=== PATIENT | female | born 1935 | race Caucasian/White ===

== ENCOUNTER 2020-02-29 10:07 | Inpatient (IN) ==
[2020-02-29] MEDS ORDERED: ASPIRIN CHEW 324 MG PO STA (10:28)
[2020-02-29] MEDS ORDERED: NITROGLYCERIN 2% OINTMENT 30GM TUBE EXT STA (10:28)
--- NOTE | 2020-02-29 10:44 | Emergency Department Note ---
History of Present Illness General Chief complaint: Respiratory Problems Stated complaint: BREATHING PROBLEMS Time Seen by Provider: 02/29/20 10:19 Source: patient History of Present Illness Provider complaint: Chest pain Onset (ago): day(s) Location: chest Radiation: non-radiation Pain Consistency: + intermittent and + now resolved Maximum Pain Intensity: 0 Quality: + other (Heaviness) Relieved By: + rest Exacerbated By: + other (Exertion) Associated symptoms: + shortness of breath; no cough, no diaphoresis, no fever/chills and no nausea/vomiting This is an 84-year-old female with a history of hypertension and aortic stenosis presenting with chest pain since yesterday. The patient stated that it started yesterday while she was doing nothing in particular. She describes it as a heaviness across her entire chest. No radiation to her her arms or neck. It is associated with shortness of breath. She does states she has had dyspnea on exertion for about 2 months. Her chest discomfort is worse when she exerts herself and better when she rests. No associated diaphoresis. She denies any fever, cough, abdominal pain, vomiting or diarrhea or black or bloody stools. She called her supervisor prepress office today who instructed her to go to the emergency department. She does have a history of hypertension which she states gets worse when she is around doctors or the hospital. He did take her high blood pressure medicine today. Home Medications Home Medications Medication Instructions Recorded Confirmed Type amlodipine 10 mg tablet 10 mg PO HS tab 02/10/20 02/29/20 History terazosin 2 mg capsule 4 mg PO HS cap 02/10/20 02/29/20 History ascorbic acid (vitamin C) [Vitamin 0 mg PO QAM 02/29/20 02/29/20 History C] bisoprolol-hydrochlorothiazide 1 tab PO QAM 02/29/20 02/29/20 History cholecalciferol (vitamin D3) 0 mcg PO QAM 02/29/20 02/29/20 History [Vitamin D3] ibuprofen [Advil] 200 mg PO Q6H PRN 02/29/20 02/29/20 History levothyroxine [Levo-T] 112 mcg PO DAILY@1700 02/29/20 02/29/20 History lorazepam 0.5 mg PO TID PRN 02/29/20 02/29/20 History losartan 100 mg PO HS 02/29/20 02/29/20 History skqpxdcjlurc-inyt-nsoos acid 1 tab PO QAM 02/29/20 02/29/20 History [Centrum] omega 6-sxm-zuu-fish oil [Fish Oil] 1 cap PO QAM 02/29/20 02/29/20 History Allergies Allergy/AdvReac Type Severity Reaction Status Date / Time No Known Drug Allergies Allergy Verified 02/29/20 11:02 Past Med/Surg History Social History Preferred Language: Yi Beliefs That Will Affect Care: None Current Living Situation: Alone Other Information That Helps Us Care for You: No Feels Safe at Home: Yes Safety Concerns: Feels Safe At This Time Smoking Status: Never smoker Hx Alcohol Use: No Hx Substance Use: No Review of Systems See HPI for pertinent positives & negatives. and A total of 10 systems reviewed and were otherwise negative Physical Exam Vital Signs Vital Signs - 24 hr 02/29/20 10:10 02/29/20 10:28 02/29/20 12:08 Temperature 36.8 C Temperature Source Oral Pulse Rate 64 Pulse Rate [Apical] 65 Respiratory Rate 18 18 Respiratory Effort / Characteristics Short of Breath Blood Pressure 189/66 H Blood Pressure [Left Arm] 184/70 H Blood Pressure Mean 107 Blood Pressure Mean [Left Arm] 108 Blood Pressure Position Sitting Pulse Oximetry 95 96 94 Oxygen Delivery Method Room Air Room Air Room Air Sepsis Recent Fever Within 48 Hours No Sepsis New/Unexplained Change in Mental Status No Sepsis Action Taken by Nursing No Action Required Constitutional: Vital signs reviewed. Eyes: Pupils are equal round reactive to light. Conjunctiva are noninjected. ENT: Pharynx is clear without erythema or exudate. Mucous membranes are moist. Neck supple without meningeal signs. Respiratory: Clear to auscultation bilaterally. Breath sounds are equal bilaterally. Cardiovascular: Regular rate and rhythm. No rubs or gallops. GI: Soft, nondistended and nontender. Bowel sounds are present. Musculoskeletal: No peripheral edema. No lower extremity tenderness. Integumentary: No cyanosis. or jaundice. Neurological: The patient is awake and alert. No focal deficits. Psychiatric: Normal affect. Not anxious appearing. Course Administered Medications Levothyroxine Sodium (Synthroid) 112 mcg PO DAILY@1700 SARAH Stop: 03/30/20 16:59 Last Admin: 02/29/20 17:18 Dose: 112 mcg Documented by: [id number] Nitroglycerin (Nitro-Bid 2%) 0.5 inch EXT Q6H SARAH Stop: 03/30/20 13:14 Last Admin: 02/29/20 13:31 Dose: 0.5 inch Documented by: [id number] Discontinued Medications Aspirin (Aspirin) 324 mg PO NOW STA Stop: 02/29/20 10:29 Last Admin: 02/29/20 10:44 Dose: 324 mg Documented by: [id number] Nitroglycerin (Nitro-Bid 2%) 0.5 inch EXT NOW STA Stop: 02/29/20 10:29 Last Admin: 02/29/20 10:44 Dose: 0.5 inch Documented by: [id number] Medical Decision Making Differential Diagnosis Unstable angina, [place], GERD, anemia, pneumonia Medical Records Attestation: I reviewed the patient's medical records. She was seen by Mj Restrepo in cardiology February 11. She was noted to have a history of mild to moderate as well as moderate TR and MR. Home Medications Current Medication List: was personally reviewed by me Laboratory Data Attestation: I reviewed the patient's lab results. Result diagrams: 02/29/20 10:35 02/29/20 10:35 Lab Results 02/29/20 02/29/20 02/29/20 Range/Units 10:35 10:35 10:35 WBC 9.00 (4.8-10.8) K/uL RBC 3.19 L (4.2-5.4) M/uL Hgb 9.9 L (12.0-16.0) g/dL Hct 29.3 L (37-47) % MCV 91.8 (80-100) fL MCH 31.0 (25-34) pg MCHC 33.8 (32-36) g/dL RDW Std Deviation 45.0 (36.4-46.3) fL RDW Coeff of Jay 13.4 (11.5-14.5) % Plt Count 293 (130-400) K/uL MPV 9.3 (7.4-10.4) fL Immature Gran % (Auto) 0.2 % Neut % (Auto) 75.3 % Lymph % (Auto) 13.3 % [place] % (Auto) 8.6 % Eos % (Auto) 2.3 % Baso % (Auto) 0.3 % Neut # (Auto) 6.77 H (1.4-6.5) K/uL Lymph # (Auto) 1.20 (1.2-3.4) K/uL [place] # (Auto) 0.77 H (0.11-0.59) K/uL Eos # (Auto) 0.21 (0-0.5) K/uL Baso # (Auto) 0.03 (0-0.2) K/uL Immature Gran # (Auto) 0.02 (0.00-0.02) K/uL PT 10.8 (9.0-12.0) Seconds INR 1.0 (0.9-1.1) APTT 24.8 (21.0-31.0) Seconds PTT Ratio 0.9 Sodium 132 L (136-145) mmol/L Potassium 4.2 (3.5-5.1) mmol/L Chloride 102 (98-107) mmol/L Carbon Dioxide 21 (21-32) mmol/L Anion Gap 9.0 (3-11) BUN 32 H (7-18) mg/dl Creatinine 2.36 H (0.6-1.2) mg/dl Est Cr Clr Drug Dosing 16.0 ml/min Est GFR ( Amer) 20.9 Est GFR (Non-Af Amer) 18.1 BUN/Creatinine Ratio 13.4 (10-20) Glucose 117 H (70-99) mg/dl Calcium 9.3 (8.5-10.1) mg/dl Magnesium (1.8-2.4) mg/dl Total Bilirubin 0.6 (0.2-1) mg/dl AST 14 L (15-37) U/L ALT 18 (12-78) U/L Alkaline Phosphatase 57 (45-117) U/L Troponin I < 0.015 (0-0.045) ng/ml Total Protein 8.6 H (6.4-8.2) gm/dl Albumin 3.8 (3.4-5.0) gm/dl Globulin 4.8 H (2.5-4.0) gm/dl Albumin/Globulin Ratio 0.8 L (0.9-2) TSH (0.300-4.500) uIu/ml 02/29/20 Range/Units 10:41 WBC (4.8-10.8) K/uL RBC (4.2-5.4) M/uL Hgb (12.0-16.0) g/dL Hct (37-47) % MCV (80-100) fL MCH (25-34) pg MCHC (32-36) g/dL RDW Std Deviation (36.4-46.3) fL RDW Coeff of Jay (11.5-14.5) % Plt Count (130-400) K/uL MPV (7.4-10.4) fL Immature Gran % (Auto) % Neut % (Auto) % Lymph % (Auto) % [place] % (Auto) % Eos % (Auto) % Baso % (Auto) % Neut # (Auto) (1.4-6.5) K/uL Lymph # (Auto) (1.2-3.4) K/uL [place] # (Auto) (0.11-0.59) K/uL Eos # (Auto) (0-0.5) K/uL Baso # (Auto) (0-0.2) K/uL Immature Gran # (Auto) (0.00-0.02) K/uL PT (9.0-12.0) Seconds INR (0.9-1.1) APTT (21.0-31.0) Seconds PTT Ratio Sodium (136-145) mmol/L Potassium (3.5-5.1) mmol/L Chloride (98-107) mmol/L Carbon Dioxide (21-32) mmol/L Anion Gap (3-11) BUN (7-18) mg/dl Creatinine (0.6-1.2) mg/dl Est Cr Clr Drug Dosing ml/min Est GFR ( Amer) Est GFR (Non-Af Amer) BUN/Creatinine Ratio (10-20) Glucose (70-99) mg/dl Calcium (8.5-10.1) mg/dl Magnesium 2.1 (1.8-2.4) mg/dl Total Bilirubin (0.2-1) mg/dl AST (15-37) U/L ALT (12-78) U/L Alkaline Phosphatase (45-117) U/L Troponin I (0-0.045) ng/ml Total Protein (6.4-8.2) gm/dl Albumin (3.4-5.0) gm/dl Globulin (2.5-4.0) gm/dl Albumin/Globulin Ratio (0.9-2) TSH 1.000 (0.300-4.500) uIu/ml Imaging Data Radiologist's Impression: XR chest 1V portable CLINICAL HISTORY: Chest Pain dyspnea COMPARISON STUDY: 03/20/2016 FINDINGS: Mild cardiomegaly. Prominent pulmonary vasculature. Slight pleural effusions bilaterally. IMPRESSION: Interstitial congestive heart failure ACT 112: Negative or not required by law. The above report was generated using voice recognition software. It may contain grammatical, syntax or spelling errors. Electronically signed by: Miguel Cabrera M.D. 02/29/2020 11:07 AM ECG Data Attestation: I personally reviewed and interpreted this ECG as follows: Indication: + chest pain Rate (beats per minute): 88 Rhythm: + normal sinus ECG ST segments: + ST depression (Lateral), + ST elevation (aVR) and + T-wave inversions (Lateral) ECG Findings: no PVCs Comparison ECG Date: from (March 20, 2016) Change: no significant change Blood Pressure Blood Pressure Findings: Elevated blood pressure Blood Pressure Disposition: further management by hospitalist KADEEM Singletary I did evaluate the patient as noted above. The patient is not complaining of any chest discomfort at this time. She denies any blood thinner or aspirin use. She was given aspirin 324 mg p.o. as well as Nitropaste to the anterior chest wall. IV access was established. I did place an order for continuous cardiac monitoring. The monitor showed normal sinus rhythm with a rate of 63. I did order and personally review the patient's 12-lead EKG as described above. She has a grossly abnormal EKG with ST depressions and T wave inversions in the lateral and high lateral leads. There is minimal ST elevation in aVR. I did compare this to prior EKG from 2016 and there is no significant change. The abnormal findings as described above were worse on her prior EKG. I did order and personally reviewed the images of the patient's chest x-ray as described above. This showed some congestive changes I did order and review the patient's blood work as noted in the electronic medical record. She has anemia and an elevated creatinine with hyponatremia as well. She had a prior creatinine which was 1.7 years ago. She has nothing more recent. I did talk to her about her test results and she said she had some blood work done at her doctor's office. I did asked the junior legal secretary to try to obtain records from her doctors office. I did recommend hospitalization for further care and evaluation. She is not currently having any chest discomfort. I did discuss the case with the hospitalist and counter caser. Impression & Plan Chest pain, exertional, Acute kidney injury superimposed on CKD, Anemia, Acute hyponatremia Discharge Plan Visit Data *Final* Discharge Date/Time: 02/29/20 14:47 Chief Complaint: Respiratory Problems Stated Complaint: BREATHING PROBLEMS ED Provider: Dilip Urena Discharge Problem: Chest pain, exertional, Acute kidney injury superimposed on CKD, Anemia, Acute hyponatremia Patient Disposition: Admitted As Inpatient Discharge Instructions Interventions: ED Discharge Assessment Last Done: 02/29/20 14:47
[2020-02-29 10:45] LABS: Basophils # (auto) 0.03 K/uL (0-0.2); Basophils % (auto) 0.3 %; Eosinophils # (auto) 0.21 K/uL (0-0.5); Eosinophils % (auto) 2.3 %; Hematocrit (blood only) 29.3 % (37-47); Hemoglobin 9.9 g/dL (12.0-16.0); Immature Granulocytes # (auto) 0.02 K/uL (0.00-0.02); Immature Granulocytes % (auto) 0.2 %; Lymphocytes % (auto) 13.3 %; Mean Corpuscular Hgb Conc 33.8 g/dL (32-36); Mean Corpuscular Volume 91.8 fL (80-100); Mean Platelet Volume 9.3 fL (7.4-10.4); Monocytes # (auto) 0.77 K/uL (0.11-0.59); Monocytes % (auto) 8.6 %; Neutrophils # (auto) 6.77 K/uL (1.4-6.5); Neutrophils % (auto) 75.3 %; Platelet Count 293 K/uL (130-400); RDW Coefficient of Variation 13.4 % (11.5-14.5); Red Blood Count 3.19 M/uL (4.2-5.4)
[2020-02-29 11:02] LABS: Partial Thromboplastin Ratio 0.9; Partial Thromboplastin Time 24.8 Seconds (21.0-31.0); Prothrombin Time 10.8 Seconds (9.0-12.0)
--- NOTE | 2020-02-29 11:08 | XRay Report ---
XR chest 1V portable CLINICAL HISTORY: Chest Pain dyspnea COMPARISON STUDY: 03/20/2016 FINDINGS: Mild cardiomegaly. Prominent pulmonary vasculature. Slight pleural effusions bilaterally. IMPRESSION: Interstitial congestive heart failure ACT 112: Negative or not required by law. The above report was generated using voice recognition software. It may contain grammatical, syntax or spelling errors. Electronically signed by: Miguel Cabrera M.D. 02/29/2020 11:07 AM
[2020-02-29 11:09] LABS: Albumin Globulin Ratio 0.8 (0.9-2); Albumin Level 3.8 gm/dl (3.4-5.0); Alkaline Phosphatase 57 U/L (45-117); Aspartate Aminotransferase 14 U/L (15-37); BUN Creatinine Ratio 13.4 (10-20); Bilirubin,Total 0.6 mg/dl (0.2-1); Blood Urea Nitrogen 32 mg/dl (7-18); Calcium 9.3 mg/dl (8.5-10.1); Carbon Dioxide 21 mmol/L (21-32); Chloride 102 mmol/L (98-107); Est GFR (African American) 20.9; Est GFR (Non-African American) 18.1; Globulin 4.8 gm/dl (2.5-4.0); Glucose 117 mg/dl (70-99); Potassium 4.2 mmol/L (3.5-5.1); Sodium 132 mmol/L (136-145); Total Protein 8.6 gm/dl (6.4-8.2)
[2020-02-29 11:12] LABS: Alanine Aminotransferase 18 U/L (12-78); Troponin I < 0.015 ng/ml (0-0.045)
--- NOTE | 2020-02-29 12:15 | History & Physical Report ---
Date of Service February 29, 2020 Assessment & Plan (1) Acute diastolic heart failure due to valvular disease: Associated orthopnea and shortness of breath on exertion No hepatic congestion from labs Repeat TTE Daily weights, strict I&O's Rx Low-sodium, heart healthy diet Continue nitro paste 2% 0.5 inches, cautious use due to aortic stenosis Continue bisoprolol 10 mg p.o. daily for now - consider switch to carvedilol for additional blood pressure management Will defer diuresis pending echocardiogram and renal ultrasound results, suspect she will need Lasix Consult cardiology given concurrent FARA with heart failure (2) Abnormal EKG: ST depressions noted on lateral leads (more pronounced that previous) although unclear how acute. Reassuringly troponin negative (will trend but no chest heaviness or shortness of breath currently at rest) (3) Exertional chest pain: Concerning for unstable angina TTE to assess wall motion abnormalities Aspirin 324 mg given in ER. Continue aspirin 81 mg p.o. daily Consult cardiology as above (4) Shortness of breath on exertion: As above for exertional chest heaviness (5) Acute kidney injury: Based on prior labs available from 2016, baseline Cr 1.5, Currently 2.63 Renal artery ultrasound noted to be less than 60% stenosis in 2016 Ultrasound KUB to rule out postobstructive etiology Urinalysis pending, no symptoms of urine tract infection from history. Fractional excretion of sodium and random protein/creatinine ratio pending to further define cause Stop NSAIDs (patient takes ibuprofen nightly which may be contributing towards FARA) Stop hydrochlorothiazide (last taken this morning) and losartan Suspect etiology is prerenal due to poor cardiac output in the setting of heart failure and should respond to diuresis but will get above investigations first (6) Normocytic anemia: Hgb currently 9.9, MCV 91.8 Unclear how acute, awaiting PCP notes, however patient has never been told she was anemic. Iron studies, B12, folate, reticulocyte count in a.m. Concerning combination of renal failure, elevated protein, anemia suggestive of multiple myeloma - consider SPEP/UPEP if it does not normalize (7) Aortic stenosis: Mild-moderate on prior echo TTE to reassess given new symptoms (8) Mitral regurgitation: As above for aortic stenosis. Combination likely leading to valvular heart failure. (9) Hypertension: Continue amlodipine 10 mg p.o. at bedtime Continue bisoprolol for now but consider switching to carvedilol if blood pressure remains elevated Hold losartan due to FARA (10) Dizziness: Orthostatic hypotension described in review of systems Recommend orthostatic vitals once acute illness is treated Suspect exacerbated by terazosin setting of aortic stenosis, anemia and heart failure (11) DVT prophylaxis: Heparin 5000 units subcu twice daily Admission and Anticipated Discharge Date Admission Date: February 29, 2020 History of Present Illness Chief Complaint: Chest heaviness and shortness of breath on exertion Primary Care Provider: Blayne Kellogg Lindsay Pham is an 84 year old female with known HTN, aortic stenosis and mitral regurgitation who presents to the emergency room due to chest heaviness and shortness of breath on exertion. Chest heaviness (denies pain) started yesterday afternoon, associated shortness of breath, any occurred while exerting herself by walking. No chest heaviness or shortness of breath while at rest. Occurred intermittently yesterday without a specific sudden acute worst event. Occurred again today, so she called her angledozer operator office and they instructed her to go to the emergency department. No associated diaphoresis or nausea. No association with eating. No fever, cough, abdominal pain, vomiting, diarrhea, constipation, black or bloody stools. She took an anxiety medication although is unclear of what this was which appeared to help. She does not think this was Lorazepam, possibly Terazosin. She denies being told that she has kidney problems or anemia (outside of previous pregnancies) in the past. In the ER her EKG showed worsening ST depressions in lateral leads from most recent in March 2016. Troponin was negative. Chest x-ray consistent with pulmonary edema due to heart failure +/- acute/chronic kidney injury. She has been asymptomatic at rest since arrival to the ER. She was treated with aspirin 324 mg p.o. and nitroglycerin 2% 0.5 inch paste in the ER. I tried calling PCP office and left message to call back to clarify whether elevated creatinine and anemia are acute or chronic. The patient reports having lab test done in September. Called alternative number directly to Dr Kellogg with no answer. HIM request sent for recent lab work. Allergies Allergy/AdvReac Type Severity Reaction Status Date / Time No Known Drug Allergies Allergy Verified 02/29/20 11:02 Home Medications Home Medications Medication Instructions Recorded Confirmed Type amlodipine 10 mg tablet 10 mg PO HS tab 02/10/20 02/29/20 History terazosin 2 mg capsule 4 mg PO HS cap 02/10/20 02/29/20 History ascorbic acid (vitamin C) [Vitamin 0 mg PO QAM 02/29/20 02/29/20 History C] bisoprolol-hydrochlorothiazide 1 tab PO QAM 02/29/20 02/29/20 History cholecalciferol (vitamin D3) 0 mcg PO QAM 02/29/20 02/29/20 History [Vitamin D3] ibuprofen [Advil] 200 mg PO Q6H PRN 02/29/20 02/29/20 History levothyroxine [Levo-T] 112 mcg PO DAILY@1700 02/29/20 02/29/20 History lorazepam 0.5 mg PO TID PRN 02/29/20 02/29/20 History losartan 100 mg PO HS 02/29/20 02/29/20 History sxdlqvgnkaep-vvdp-kftjo acid 1 tab PO QAM 02/29/20 02/29/20 History [Centrum] omega 1-zcg-mei-fish oil [Fish Oil] 1 cap PO QAM 02/29/20 02/29/20 History Past Med/Surg History Medical History (Updated 02/29/20 @ 17:31 by Dilip Urena MD) Aortic stenosis Chronic kidney disease, stage III (moderate) Hypertension LVH (left ventricular hypertrophy) Mitral regurgitation Social History Preferred Language: Latvian Beliefs That Will Affect Care: None Current Living Situation: Alone Other Information That Helps Us Care for You: No Feels Safe at Home: Yes Safety Concerns: Feels Safe At This Time Smoking Status: Never smoker Hx Alcohol Use: No Hx Substance Use: No Review of Systems Review of Systems: All systems reviewed & are unremarkable except as noted in HPI & below Gastrointestinal: + belching (this morning); no abdominal pain, no heartburn, no nausea, no vomiting, no hematemesis, no pain with swallowing, no dysphagia, no change in bowel habits, no constipation, no blood in stools and no melena Genitourinary: + urinary frequency (chronic) and + urinary urgency (chronic); no difficulty urinating, no decreased urination, no hematuria and no flank pain Neurologic: + dizziness (Intermittent on standing); no syncope Physical Exam Constitutional: well developed and well nourished; no acute distress Eyes: PERRL, conjunctivae normal, anicteric sclerae ENMT: external ear and nose normal, oropharynx normal Neck: trachea midline, no thyromegaly Cardiovascular: Rate/Rhythm: regular rate and regular rhythm Heart Sounds: + murmur Vessels: + JVD Extremities: normal capillary refill and + pedal edema (1+ to knees b/l); no calf tenderness Gastrointestinal (Abdomen): normal bowel sounds, soft, nontender, no hepatosplenomegaly Musculoskeletal: no cyanosis or clubbing, extremities motor strength 5/5 Skin: no rashes, warm and dry Neurologic: moves all extremities and awake; no focal motor deficits and not confused Speech / Cognition: normal speech Motor/Sensory: no tremor (Resting) Cranial Nerves: PERRL, EOM intact bilaterally, normal facial strength, tongue midline, able to rotate head bilaterally and able to elevate shoulders bilaterally Psychiatric: A+Ox3, euthymic affect Genitourinary: no CVA tenderness Lymphatic: no cervical or axillary lymphadenopathy Results & Data Results & Data ([facility]) Vital Signs (Past 12 Hours) Vital Signs Temp Pulse Resp BP Pulse Ox 02/29/20 10:28 96 02/29/20 10:10 36.8 C 64 18 189/66 H 95 Diagnostic Findings XR chest 1V portable IMPRESSION: Interstitial congestive heart failure ECG Indication: SOB/dyspnea Rate (beats per minute): 88 Rhythm: normal sinus Findings: + 1st degree AV block, + PAC and + ST depression (Lateral) Comparison ECG Date: from (March 20, 2016) Change: the following changes noted (Increased ST depression in lateral leads, PVCs noted present, PACs present) Code Status & VTE Plan Code Status Full VTE Prophylaxis Plan VTE Prophylaxis will be ordered: Yes PG Care Time/CCT Total # of Minutes Spent Total Time Spent with Patient: Total time spent is greater than 50% in coordination of care (as documented) at patient's floor/unit and/or counseling patient: Coding Level of Care Code 06187 Initial Inpt Care Lvl 3 Diagnoses Acute diastolic heart failure due to valvular disease I50.31; I38 Abnormal EKG R94.31 Exertional chest pain R07.9 Shortness of breath on exertion R06.02 Acute kidney injury N17.9 Normocytic anemia D64.9 Aortic stenosis I35.0 Mitral regurgitation I34.0 Hypertension I10 Dizziness R42 DVT prophylaxis Z29.9
[2020-02-29] MEDS: NITROGLYCERIN 2% OINTMENT 30GM TUBE EXT SCH ×2 (13:31→19:30)
--- NOTE | 2020-02-29 14:58 | XCELERA ---
[id number]
[2020-02-29] MEDS ORDERED: ALUMINUM/MAGNESIUM SUSP 30 ML UDC PO PRN (15:45)
[2020-02-29] MEDS ORDERED: ACETAMINOPHEN 325 MG TAB PO PRN (15:45)
[2020-02-29] MEDS ORDERED: ONDANSETRON INJ 2 MG/ML 2 ML VIAL IV PRN (15:45)
[2020-02-29] MEDS ORDERED: MAGNESIUM HYDROXIDE SUSP 30 ML UDC PO PRN (15:45)
[2020-02-29] MEDS ORDERED: POLYETHYLENE (MIRALAX) 17 GM PACK PO PRN (15:45)
[2020-02-29] MEDS ORDERED: LORazepam 0.5 MG TAB PO PRN (15:45)
[2020-02-29] MEDS ORDERED: NITROGLYCERIN SL 0.4 MG/TAB TAB SL PRN (15:45)
--- NOTE | 2020-02-29 15:58 | Electrocardiogram Report ---
Test Reason : Blood Pressure : / mmHG Vent. Rate : 088 BPM Atrial Rate : 088 BPM P-R Int : 216 ms QRS Dur : 098 ms QT Int : 394 ms P-R-T Axes : 108 -02 161 degrees QTc Int : 476 ms Sinus rhythm with 1st degree A-V block with Premature atrial complexes Prolonged QT Abnormal ECG When compared with ECG of 20-MAR-2016 14:25, Premature ventricular complexes are no longer Present Premature atrial complexes are now Present Confirmed by Ayush Gonzalez ([id number]) on 02/29/2020 3:57:42 PM Referred By: REFERRED SELF Confirmed By:Ayush Gonzalez
[2020-02-29 16:39] LABS: Magnesium 2.1 mg/dl (1.8-2.4)
[2020-02-29] MEDS: LEVOTHYROXINE SODIUM 112 MCG TABLET PO SCH (17:18)
[2020-02-29 17:56] LABS: Appearance Urine Clear (Clear); Bacteria Urine Automated Negative (Negative); Bilirubin Urine Negative (Negative); Blood Urine Negative (Negative); Color Urine Yellow; Glucose Urine UA Negative (Negative); Ketones Urine Negative (Negative); Leukocyte Esterase Urine Negative (Negative); Nitrite Urine Negative (Negative); Protein Urine 2+ (Negative); RBC Urine Automated 0-4 /hpf (0-4); Specific Gravity Urine 1.016 (1.000-1.030); Urobilinogen Urine Negative (Negative)
--- NOTE | 2020-02-29 18:19 | Ultrasound Report ---
EXAMINATION: RENAL ULTRASOUND CLINICAL HISTORY: acute kidney injury COMPARISON STUDY: FINDINGS: The right kidney measures 9.7 cm. The left kidney measures 10.4 cm. There is no evidence o f hydronephrosis. There is a 1 cm lower pole left renal cyst Bladder was nearly empty which may explain a thickened wall. Neither ureteral jet was visualized IMPRESSION : 1. 1 cm lower pole left renal cyst 2. No evidence of hydronephrosis. ACT 112: Negative or not required by law. Electronically signed by: Primo Mina M.D. 02/29/2020 6:17 PM
[2020-02-29] MEDS: HEPARIN SOD 5,000 UNIT/0.5 ML VIAL SQ SCH (20:18)
[2020-02-29] MEDS: AMLODIPINE BESYLATE 5 MG TAB PO SCH (20:18)
[2020-02-29] MEDS ORDERED: FUROSEMIDE 20 MG in SYRINGE 0 ML IV STA (20:32)
[2020-02-29 20:58] LABS: Hematocrit (blood only) 26.4 % (37-47); Hemoglobin 9.2 g/dL (12.0-16.0); Mean Corpuscular Hemoglobin 31.3 pg (25-34); Mean Corpuscular Hgb Conc 34.8 g/dL (32-36); Mean Corpuscular Volume 89.8 fL (80-100); Mean Platelet Volume 8.7 fL (7.4-10.4); Platelet Count 264 K/uL (130-400); RDW Coefficient of Variation 13.3 % (11.5-14.5); RDW Standard Deviation 43.8 fL (36.4-46.3); Red Blood Count 2.94 M/uL (4.2-5.4); White Blood Count 9.67 K/uL (4.8-10.8)
[2020-02-29 21:16] LABS: BUN Creatinine Ratio 13.7 (10-20); Blood Urea Nitrogen 31 mg/dl (7-18); Carbon Dioxide 22 mmol/L (21-32); Creatinine Clr Calc Pharmacy 16.7 ml/min; Est GFR (African American) 21.9; Est GFR (Non-African American) 18.9; Glucose 96 mg/dl (70-99)
[2020-02-29 21:20] LABS: Chloride 102 mmol/L (98-107); Potassium 4.6 mmol/L (3.5-5.1); Sodium 131 mmol/L (136-145); Troponin I < 0.015 ng/ml (0-0.045)
[2020-02-29] MEDS ORDERED: LOSARTAN POTASSIUM 50 MG TAB PO ONE (23:00)
[2020-02-29] MEDS ORDERED: TERAZOSIN HCL 1 MG CAP PO ONE (23:00)
[2020-03-01] MEDS: NITROGLYCERIN 2% OINTMENT 30GM TUBE EXT SCH ×4 (01:42→19:30)
[2020-03-01] MEDS: ASPIRIN 81 MG ECTAB PO SCH (08:16)
[2020-03-01] MEDS: OMEGA-3 (PURIFIED FISH OIL) 1 GM CAP PO SCH (08:17)
[2020-03-01] MEDS: CEROVITE ADV FORMULA TAB PO SCH (08:17)
[2020-03-01] MEDS: HEPARIN SOD 5,000 UNIT/0.5 ML VIAL SQ SCH ×2 (08:18→20:04)
[2020-03-01] MEDS ORDERED: BISOPROLOL FUMARATE 5 MG TAB PO SCH (09:00)
[2020-03-01] MEDS ORDERED: FUROSEMIDE 20 MG in SYRINGE 0 ML IV SCH (09:00)
[2020-03-01 09:13] LABS: Hematocrit (blood only) 25.5 % (37-47); Hemoglobin 8.9 g/dL (12.0-16.0); Mean Corpuscular Hemoglobin 31.2 pg (25-34); Mean Corpuscular Hgb Conc 34.9 g/dL (32-36); Mean Corpuscular Volume 89.5 fL (80-100); Mean Platelet Volume 9.3 fL (7.4-10.4); Platelet Count 257 K/uL (130-400); RDW Coefficient of Variation 13.2 % (11.5-14.5); RDW Standard Deviation 43.2 fL (36.4-46.3); Red Blood Count 2.85 M/uL (4.2-5.4); Reticulocyte % 1.7 % (0.5-2.0); Reticulocytes # 0.05 10^6/uL (0.02-0.10); White Blood Count 8.59 K/uL (4.8-10.8)
--- NOTE | 2020-03-01 09:17 | Cardiology Consultation ---
Date of Consultation March 01, 2020 Assessment & Plan (1) Acute diastolic heart failure due to valvular disease: Mrs. Pham is an 84-year-old female with a history of Hypertension, Moderate Aortic Stenosis, Severe Concentric LVH, Moderate MR, Moderate TR, Mild MR, and Hypothyroidism who was admitted 02/29/2020 with Acute Diastolic CHF, Chest Heaviness with Negative Troponin x 2, suspected acute kidney injury, uncontrolled hypertension, brief runs of PAT, and a worsening anemia. Her CHF w as likely exacerbated by increased dietary salt intake recently -- in the presence of valvular heart disease, LVH, diastolic dysfunction, and elevated pulmonary pressures. We recommend the followin. Continue Amlodipine 10 mg daily at bedtime. 2. Stop Bisoprolol-HCT 10-6.25 mg daily. 3. Start Coreg 12.5 mg b.i.d. 4. Continue Terazosin 4 mg each evening bedtime. 5. Continue IV Lasix 20 mg for time being, convert to oral Lasix at discharge if renal function allows. 6. Monitor daily laboratories. 7. Maintain a 2 gram low-sodium, heart healthy diet. 8. Monitor daily I&O's, body weights. 9. Continue Losartan 100 mg daily. (2) LVH (left ventricular hypertrophy): As outlined above. We need to get BP under better control. -- We can titrate Coreg here or as an outpatient. (3) Hypertension: -- Stop Bisoprolol HCT. -- Begin Coreg 12.5 mg b.i.d. -- Continue other antihypertensives as outlined above. (4) Aortic stenosis: Moderate , Moderate TR, Mild MR, and elevated pulmonary pressures. -- Continue to medically manage. -- Recommend adding a statin which can slow progression of valvular disease. (5) Exertional chest pain: -- Negative cardiac enzymes x 2. -- Likely related to CHF. -- Aspirin for primary prevention. -- Once excess volume is offloaded and patient asymptomatic - ambulate in hallway to assess for any recurrence. -- Consider stress echocardiogram as an outpatient. -- Start Coreg and Atorvastatin. History of Present Illness Reason for Consultation: 1. Acute Diastolic CHF. Requesting Physician: Geo Tapia DO Attending Physician: Ayush Gonzalez MD History of Present Illness Mrs. Pham is an 84-year-old female with a history of Hypertension, Mild to Moderate Aortic Stenosis, Severe Concentric LVH, Moderate MR, Moderate TR, and Hypothyroidism who was admitted 02/29/2020 after presenting with Increased SOB, ROB, and Intermittent Chest Heaviness which began 2 days ago in the afternoon. She thought that her chest pressure may have been heartburn so she took a TUMS and it got better -- however she was still experiencing SOB and ROB. She then woke up yesterday morning with the same symptoms -- so she sought further evaluation and treatment here. She state that her Chest Heaviness was across her entire chest but did not radiate to her her arms, back, jaw, or neck. Her chest discomfort was worse when she exerted herself and better when she rested. No associated diaphoresis, nausea, or vomiting. She denies any fever, cough, abdominal pain, diarrhea, or black or bloody stools Patient does admit to increased dietary salt intake -- her daughter prepared a few meals for her and one of the dishes was particularly salty. Patient's CXR showed interstitial pulmonary edema. EKG showed lateral ST segment depressions, but her Troponin I level is < 0.015 ng/ml x 2. She is also anemic with a Hgb of 9.2 g/dl. Telemetry Monitoring shows a NSR with brief runs of Paroxysmal Atrial Tachycardia. Thus far she has a negative fluid balance of 580 ml, and is much less symptomatic. She has not had any further chest pressure or heaviness, and her breathing has improved -- although her abdomen is still distended. Her blood pressure has been elevated throughout this hospitalization. She remains compliant with her medications, and denies any adverse side effects. ECHOCARDIOGRAM 02/29/2020: -- Normal biventricular systolic function. -- LVEF 65% to 70%. -- Concentric LVH. -- Grade II LV diastolic dysfunction. -- Moderate . -- Mild MR. -- Moderate TR. -- RVSP is elevated at 40 to 50 mmHg. Patient has also had the following Cardiac Studies: ECHOCARDIOGRAM 09/30/2019: -- Normal biventricular systolic function. -- LVEF 65% to 70%. -- Severe concentric LVH. -- Grade II LV diastolic dysfunction. -- Mild to moderate , trace AI. -- Moderate MR. -- Moderate TR. -- Trace PI. -- Mildly elevated RVSP. -- Normal estimated CVP. -- Very small posterior pericardial effusion, no evidence of cardiac tamponade. -- Compared to 08/15/2019 Echo - no significant change. ECHOCARDIOGRAM 08/15/2018: 1. Hyperdynamic LV systolic function. 2. LVEF > 70%, No RWMA's. 3. Moderate Concentric LVH with grade 2 LV diastolic dysfunction. 4. Moderate , Trivial AI. 5. Moderate MR. 6. Moderate TR. 7. Normal RV size and systolic function. 8. Mildly dilated LA. 9. Moderately elevated RVSP. 10. Compared to Echocardiogram 06/25/2017 -- Estimated RVSP has increased. Allergies Allergy/AdvReac Type Severity Reaction Status Date / Time No Known Drug Allergies Allergy Verified 02/29/20 11:02 Home Medications Home Medications Medication Instructions Recorded Confirmed Type amlodipine 10 mg tablet 10 mg PO HS tab 02/10/20 02/29/20 History terazosin 2 mg capsule 4 mg PO HS cap 02/10/20 02/29/20 History ascorbic acid (vitamin C) [Vitamin 0 mg PO QAM 02/29/20 02/29/20 History C] bisoprolol-hydrochlorothiazide 1 tab PO QAM 02/29/20 02/29/20 History cholecalciferol (vitamin D3) 0 mcg PO QAM 02/29/20 02/29/20 History [Vitamin D3] ibuprofen [Advil] 200 mg PO Q6H PRN 02/29/20 02/29/20 History levothyroxine [Levo-T] 112 mcg PO DAILY@1700 02/29/20 02/29/20 History lorazepam 0.5 mg PO TID PRN 02/29/20 02/29/20 History losartan 100 mg PO HS 02/29/20 02/29/20 History geypyuycxgmy-sdqw-aitxm acid 1 tab PO QAM 02/29/20 02/29/20 History [Centrum] omega 2-ntz-ziz-fish oil [Fish Oil] 1 cap PO QAM 02/29/20 02/29/20 History Patient History Medical History Aortic stenosis Chronic kidney disease, stage III (moderate) Hypertension LVH (left ventricular hypertrophy) Mitral regurgitation Social History Preferred Language: Setswana Beliefs That Will Affect Care: None Current Living Situation: Alone Other Information That Helps Us Care for You: No Feels Safe at Home: Yes Safety Concerns: Feels Safe At This Time Smoking Status: Never smoker Hx Alcohol Use: No Hx Substance Use: No Physical Exam Physical Exam: General: Patient in no acute distress. HEENT: Head is atraumatic, normocephalic. EOMs intact. Sclera anicteric. Facies symmetric. No perioral cyanosis. Mucous membranes moist. Neck: Mild JVD. Carotid upstrokes +2 bilaterally without bruits. Jugular venous pressure is elevated to 1/[address] to the angle of the jaw sitting upright. Chest and Lungs: Decreased breath sounds in bilateral bases. No obvious crackles or rales. No wheezes. CVS: S1 and S2 are regular with a grade 2/6 basal systolic murmur heard best over the right second intercostal space, grade 2/6 apical holosystolic murmur which radiates to the axilla. No diastolic murmurs. No gallops or rub. PMI is nondisplaced. No lifts, heaves, or thrills. No abdominal aortic or renal bruits. Abdominal Exam: Bowel sounds present. Abdomen appears distended. No masses, organomegaly, or tenderness. Extremities: No clubbing, cyanosis, or edema. Posterior tibial pulses +2 bilaterally. Radial pulses +2 bilaterally. Neurologic Exam: Patient is awake, alert, and oriented. Pleasant and cooperative. Answers questions appropriately. Speech is clear. Normal movement in all 4 extremities. Telemetry Monitoring shows a NSR with brief runs of Paroxysmal Atrial Tachycardia. Results & Data ([facility]) Vital Signs (Past 12 Hours) Vital Signs Temp Pulse Pulse Resp BP Pulse Ox 03/01/20 07:30 37.1 C 88 18 173/71 H 96 03/01/20 05:15 168/72 H 03/01/20 04:05 36.9 C 82 19 181/70 H 90 03/01/20 02:51 61 02/29/20 23:02 36.6 C 62 20 172/62 H 93 Laboratory Results Laboratory Results - last 24 hr 02/29/20 02/29/20 02/29/20 10:35 10:35 10:35 WBC 9.00 RBC 3.19 L Hgb 9.9 L Hct 29.3 L MCV 91.8 MCH 31.0 MCHC 33.8 RDW Std Deviation 45.0 RDW Coeff of Jay 13.4 Plt Count 293 MPV 9.3 Immature Gran % (Auto) 0.2 Neut % (Auto) 75.3 Lymph % (Auto) 13.3 Levy % (Auto) 8.6 Eos % (Auto) 2.3 Baso % (Auto) 0.3 Reticulocyte % (Auto) Neut # (Auto) 6.77 H Lymph # (Auto) 1.20 Levy # (Auto) 0.77 H Eos # (Auto) 0.21 Baso # (Auto) 0.03 Reticulocyte # Immature Gran # (Auto) 0.02 PT 10.8 INR 1.0 APTT 24.8 PTT Ratio 0.9 Sodium 132 L Potassium 4.2 Chloride 102 Carbon Dioxide 21 Anion Gap 9.0 BUN 32 H Creatinine 2.36 H Est Cr Clr Drug Dosing 16.0 Est GFR ( Amer) 20.9 Est GFR (Non-Af Amer) 18.1 BUN/Creatinine Ratio 13.4 Glucose 117 H POC Glucose Calcium 9.3 Magnesium Iron Transferrin Transferrin % Sat Ferritin Total Bilirubin 0.6 AST 14 L ALT 18 Alkaline Phosphatase 57 Troponin I < 0.015 Total Protein 8.6 H Total Protein (PEP) Albumin 3.8 Albumin (PEP) Globulin 4.8 H Albumin/Globulin Ratio 0.8 L Ntyov-6-Vliqgwjjv Kcats-9-Vvbesfrvn Wrnx-2-Gqwmazgc Cckj-5-Mrgfxvyt Gamma Globulins Monoclonal Peak 3 Ser Monoclonl Protein Ser Monoclonal Prot 2 PEP Interpretation Vitamin B12 Folate TSH Urine Color Urine Appearance Urine pH Ur Specific [place] Urine Protein Urine Glucose (UA) Urine Ketones Urine Blood Urine Nitrite Urine Bilirubin Urine Urobilinogen Ur Leukocyte Esterase Urine WBC (Auto) Urine RBC (Auto) U Hyaline Cast (Auto) U Epithel Cells (Auto) Urine Bacteria (Auto) Ur Random Creatinine U Random Total Protein Ur Random Sodium Serum Immunofixation Free [place] LC, Quant Free Lambda LC, Quant Free [place]/Lambda Ratio Blood Type Antibody Screen 02/29/20 02/29/20 02/29/20 10:41 17:40 17:40 WBC RBC Hgb Hct MCV MCH MCHC RDW Std Deviation RDW Coeff of Jya Plt Count MPV Immature Gran % (Auto) Neut % (Auto) Lymph % (Auto) Levy % (Auto) Eos % (Auto) Baso % (Auto) Reticulocyte % (Auto) Neut # (Auto) Lymph # (Auto) Levy # (Auto) Eos # (Auto) Baso # (Auto) Reticulocyte # Immature Gran # (Auto) PT INR APTT PTT Ratio Sodium Potassium Chloride Carbon Dioxide Anion Gap BUN Creatinine Est Cr Clr Drug Dosing Est GFR ( Amer) Est GFR (Non-Af Amer) BUN/Creatinine Ratio Glucose POC Glucose Calcium Magnesium 2.1 Iron Transferrin Transferrin % Sat Ferritin Total Bilirubin AST ALT Alkaline Phosphatase Troponin I Total Protein Total Protein (PEP) Albumin Albumin (PEP) Globulin Albumin/Globulin Ratio Spiji-6-Rltspcftx Wmvpr-2-Ecgwnsgyu Jnpr-0-Gjpmqemy Uazy-4-Cmatbsgu Gamma Globulins Monoclonal Peak 3 Ser Monoclonl Protein Ser Monoclonal Prot 2 PEP Interpretation Vitamin B12 Folate TSH 1.000 Urine Color Yellow Urine Appearance Clear Urine pH 5.0 Ur Specific [place] 1.016 Urine Protein 2+ H Urine Glucose (UA) Negative Urine Ketones Negative Urine Blood Negative Urine Nitrite Negative Urine Bilirubin Negative Urine Urobilinogen Negative Ur Leukocyte Esterase Negative Urine WBC (Auto) 1-5 Urine RBC (Auto) 0-4 U Hyaline Cast (Auto) 1-5 U Epithel Cells (Auto) 5-10 H Urine Bacteria (Auto) Negative Ur Random Creatinine U Random Total Protein 89.1 H Ur Random Sodium Serum Immunofixation Free [place] LC, Quant Free Lambda LC, Quant Free [place]/Lambda Ratio Blood Type Antibody Screen 02/29/20 02/29/20 02/29/20 17:40 17:40 20:48 WBC 9.67 RBC 2.94 L Hgb 9.2 L Hct 26.4 L MCV 89.8 MCH 31.3 MCHC 34.8 RDW Std Deviation 43.8 RDW Coeff of Jay 13.3 Plt Count 264 MPV 8.7 Immature Gran % (Auto) Neut % (Auto) Lymph % (Auto) Levy % (Auto) Eos % (Auto) Baso % (Auto) Reticulocyte % (Auto) Neut # (Auto) Lymph # (Auto) Levy # (Auto) Eos # (Auto) Baso # (Auto) Reticulocyte # Immature Gran # (Auto) PT INR APTT PTT Ratio Sodium Potassium Chloride Carbon Dioxide Anion Gap BUN Creatinine Est Cr Clr Drug Dosing Est GFR ( Amer) Est GFR (Non-Af Amer) BUN/Creatinine Ratio Glucose POC Glucose Calcium Magnesium Iron Transferrin Transferrin % Sat Ferritin Total Bilirubin AST ALT Alkaline Phosphatase Troponin I Total Protein Total Protein (PEP) Albumin Albumin (PEP) Globulin Albumin/Globulin Ratio Aromf-0-Mzlwszvwx Vprcd-6-Qdmamysan Yfdq-7-Jjiwkiji Nbbk-3-Wvxvcrpn Gamma Globulins Monoclonal Peak 3 Ser Monoclonl Protein Ser Monoclonal Prot 2 PEP Interpretation Vitamin B12 Folate TSH Urine Color Urine Appearance Urine pH Ur Specific [place] Urine Protein Urine Glucose (UA) Urine Ketones Urine Blood Urine Nitrite Urine Bilirubin Urine Urobilinogen Ur Leukocyte Esterase Urine WBC (Auto) Urine RBC (Auto) U Hyaline Cast (Auto) U Epithel Cells (Auto) Urine Bacteria (Auto) Ur Random Creatinine 75.2 U Random Total Protein Ur Random Sodium 62 Serum Immunofixation Free [place] LC, Quant Free Lambda LC, Quant Free [place]/Lambda Ratio Blood Type Antibody Screen 02/29/20 03/01/20 03/01/20 20:48 08:51 08:51 WBC RBC Hgb Hct MCV MCH MCHC RDW Std Deviation RDW Coeff of Jay Plt Count MPV Immature Gran % (Auto) Neut % (Auto) Lymph % (Auto) Levy % (Auto) Eos % (Auto) Baso % (Auto) Reticulocyte % (Auto) Neut # (Auto) Lymph # (Auto) Levy # (Auto) Eos # (Auto) Baso # (Auto) Reticulocyte # Immature Gran # (Auto) PT INR APTT PTT Ratio Sodium 131 L Potassium 4.6 Chloride 102 Carbon Dioxide 22 Anion Gap 7.0 BUN 31 H Creatinine 2.27 H Est Cr Clr Drug Dosing 16.7 Est GFR ( Amer) 21.9 Est GFR (Non-Af Amer) 18.9 BUN/Creatinine Ratio 13.7 Glucose 96 POC Glucose Calcium 9.0 Magnesium Iron Transferrin Transferrin % Sat Ferritin Total Bilirubin AST ALT Alkaline Phosphatase Troponin I < 0.015 Total Protein Total Protein (PEP) Pending Albumin Albumin (PEP) Pending Globulin Albumin/Globulin Ratio Povls-5-Peppillxi Pending Tguii-1-Isindwaxh Pending Ftnv-4-Xmukeoca Pending Kydd-2-Cfqgfwmh Pending Gamma Globulins Pending Monoclonal Peak 3 Pending Ser Monoclonl Protein Pending Ser Monoclonal Prot 2 Pending PEP Interpretation Pending Vitamin B12 Folate TSH Urine Color Urine Appearance Urine pH Ur Specific [place] Urine Protein Urine Glucose (UA) Urine Ketones Urine Blood Urine Nitrite Urine Bilirubin Urine Urobilinogen Ur Leukocyte Esterase Urine WBC (Auto) Urine RBC (Auto) U Hyaline Cast (Auto) U Epithel Cells (Auto) Urine Bacteria (Auto) Ur Random Creatinine U Random Total Protein Ur Random Sodium Serum Immunofixation Pending Free [place] LC, Quant Pending Free Lambda LC, Quant Pending Free [place]/Lambda Ratio Pending Blood Type Pending Antibody Screen Pending 03/01/20 03/01/20 03/01/20 08:51 08:51 08:51 WBC 8.59 RBC 2.85 L Hgb 8.9 L Hct 25.5 L MCV 89.5 MCH 31.2 MCHC 34.9 RDW Std Deviation 43.2 RDW Coeff of Jay 13.2 Plt Count 257 MPV 9.3 Immature Gran % (Auto) Neut % (Auto) Lymph % (Auto) Levy % (Auto) Eos % (Auto) Baso % (Auto) Reticulocyte % (Auto) 1.7 Neut # (Auto) Lymph # (Auto) Levy # (Auto) Eos # (Auto) Baso # (Auto) Reticulocyte # 0.05 Immature Gran # (Auto) PT INR APTT PTT Ratio Sodium Pending Potassium Pending Chloride Pending Carbon Dioxide Pending Anion Gap Pending BUN Pending Creatinine Pending Est Cr Clr Drug Dosing Pending Est GFR ( Amer) Pending Est GFR (Non-Af Amer) Pending BUN/Creatinine Ratio Pending Glucose Pending POC Glucose Calcium Pending Magnesium Iron Pending Transferrin Pending Transferrin % Sat Pending Ferritin Pending Total Bilirubin AST ALT Alkaline Phosphatase Troponin I Total Protein Total Protein (PEP) Albumin Albumin (PEP) Globulin Albumin/Globulin Ratio Jpxjk-4-Nojbnpjkp Ldacj-5-Nemqgqujj Jufk-0-Ocvaktob Jptz-8-Chtqtmyc Gamma Globulins Monoclonal Peak 3 Ser Monoclonl Protein Ser Monoclonal Prot 2 PEP Interpretation Vitamin B12 Pending Folate Pending TSH Urine Color Urine Appearance Urine pH Ur Specific [place] Urine Protein Urine Glucose (UA) Urine Ketones Urine Blood Urine Nitrite Urine Bilirubin Urine Urobilinogen Ur Leukocyte Esterase Urine WBC (Auto) Urine RBC (Auto) U Hyaline Cast (Auto) U Epithel Cells (Auto) Urine Bacteria (Auto) Ur Random Creatinine U Random Total Protein Ur Random Sodium Serum Immunofixation Free [place] LC, Quant Free Lambda LC, Quant Free [place]/Lambda Ratio Blood Type Antibody Screen 03/01/20 08:55 WBC RBC Hgb Hct MCV MCH MCHC RDW Std Deviation RDW Coeff of Jay Plt Count MPV Immature Gran % (Auto) Neut % (Auto) Lymph % (Auto) Levy % (Auto) Eos % (Auto) Baso % (Auto) Reticulocyte % (Auto) Neut # (Auto) Lymph # (Auto) Levy # (Auto) Eos # (Auto) Baso # (Auto) Reticulocyte # Immature Gran # (Auto) PT INR APTT PTT Ratio Sodium Potassium Chloride Carbon Dioxide Anion Gap BUN Creatinine Est Cr Clr Drug Dosing Est GFR ( Amer) Est GFR (Non-Af Amer) BUN/Creatinine Ratio Glucose POC Glucose 173 H Calcium Magnesium Iron Transferrin Transferrin % Sat Ferritin Total Bilirubin AST ALT Alkaline Phosphatase Troponin I Total Protein Total Protein (PEP) Albumin Albumin (PEP) Globulin Albumin/Globulin Ratio Snyuf-0-Ljapthbnq Nkjqz-2-Doftimorf Kokj-1-Jsgdxfpt Jhpv-8-Blopcejk Gamma Globulins Monoclonal Peak 3 Ser Monoclonl Protein Ser Monoclonal Prot 2 PEP Interpretation Vitamin B12 Folate TSH Urine Color Urine Appearance Urine pH Ur Specific [place] Urine Protein Urine Glucose (UA) Urine Ketones Urine Blood Urine Nitrite Urine Bilirubin Urine Urobilinogen Ur Leukocyte Esterase Urine WBC (Auto) Urine RBC (Auto) U Hyaline Cast (Auto) U Epithel Cells (Auto) Urine Bacteria (Auto) Ur Random Creatinine U Random Total Protein Ur Random Sodium Serum Immunofixation Free [place] LC, Quant Free Lambda LC, Quant Free [place]/Lambda Ratio Blood Type Antibody Screen Medications Administered Active Medications Generic Name Dose Route Start Last Admin Trade Name Freq PRN Reason Stop Dose Admin Acetaminophen 650 mg 02/29/20 15:45 02/29/20 21:52 Tylenol PO 03/30/20 15:44 650 mg Q4H PRN Administration Pain or Fever Al Hydrox/Mg Hydrox/Simethicone 15 ml 02/29/20 15:45 Maalox PO 03/30/20 15:44 Q4H PRN Dyspepsia Amlodipine Besylate 10 mg 02/29/20 21:00 02/29/20 20:18 Norvasc PO 03/30/20 20:59 10 mg HS SARAH Administration Aspirin 81 mg 03/01/20 09:00 03/01/20 08:16 Ecotrin Ectab PO 03/31/20 08:59 81 mg QAM SARAH Administration Bisoprolol Fumarate 10 mg 03/01/20 09:00 03/01/20 08:16 Bisoprolol Fumarate PO 03/31/20 08:59 10 mg DAILY SARAH Administration Fish Oil 1 gm 03/01/20 09:00 03/01/20 08:17 [place]-3 (Purified Fish Oil) PO 03/31/20 08:59 1 gm QAM SARAH Administration Heparin Sodium (Porcine) 5,000 units 02/29/20 21:00 03/01/20 08:18 Heparin Sodium (Porcine) SQ 03/30/20 20:59 Not Given Q12 SARAH Furosemide 20 mg/ Syringe 2 mls @ 4 mls/min 03/01/20 09:00 IV 03/31/20 08:59 QAM SARAH Levothyroxine Sodium 112 mcg 02/29/20 17:00 02/29/20 17:18 Synthroid PO 03/30/20 16:59 112 mcg DAILY@1700 SARAH Administration Lorazepam 0.5 mg 02/29/20 15:45 Ativan PO 03/30/20 15:44 TID PRN anxiety Losartan Potassium 100 mg 03/01/20 21:00 Cozaar PO 03/31/20 20:59 HS SARAH Magnesium Hydroxide 30 ml 02/29/20 15:45 Milk Of Magnesia PO 03/30/20 15:44 Q12H PRN Constipation Multivitamins/Minerals 1 tab 03/01/20 09:00 03/01/20 08:17 Multivitamin W/ Minerals Tab PO 03/31/20 08:59 1 tab QAM SARAH Administration Nitroglycerin 0.5 inch 02/29/20 13:15 03/01/20 06:03 Nitro-Bid 2% EXT 03/30/20 13:14 0.5 inch Q6H SARAH Administration Nitroglycerin 0.4 mg 02/29/20 15:45 Nitrostat SL 03/30/20 15:44 UD PRN Chest Pain Polyethylene Glycol 17 gm 02/29/20 15:45 Miralax Powder Packet PO 03/30/20 15:44 DAILY PRN Constipation PG Care Time/CCT Total # of Minutes Spent Total Time Spent with Patient: Total time spent is greater than 50% in coordination of care (as documented) at patient's floor/unit and/or counseling patient: Coding Level of Care Code 56237 Initial Inpt Care Lvl 3 Diagnoses Acute diastolic heart failure due to valvular disease I50.31; I38 LVH (left ventricular hypertrophy) I51.7 Hypertension I10 Aortic stenosis I35.0 Exertional chest pain R07.9
[2020-03-01 10:02] LABS: Folate (Folic Acid) > 24.00 ng/ml (>5.38); Vitamin B12 1030 pg/ml (211-911)
[2020-03-01 10:07] LABS: BUN Creatinine Ratio 15.9 (10-20); Calcium 8.5 mg/dl (8.5-10.1); Creatinine Clr Calc Pharmacy 17.9 ml/min; Est GFR (Non-African American) 20.7; Ferritin 158.5 ng/ml (8-388); Potassium 3.9 mmol/L (3.5-5.1)
--- NOTE | 2020-03-01 10:48 | Nephrology Consultation ---
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 Creatinine was 2.0 in April 2019, on admission creatinine was 2.3 yesterday which is staying relatively stable. Unclear etiology for advanced CKD, could be secondary to hypertensive nephropathy, chronic tubular interstitial disease or prior AK I with non recovery. Cannot exclude possibility for underlying glomerular disease, recent UA showed proteinuria, currently 24 hour urine collection for proteinuria is pending. Paraproteinemia workup is pending. Regardless of the cause she probably has advanced CKD and creatinine currently 2.3-2.4 may not be that much off from her baseline. --continue on losartan 100 milligram daily, while waiting for 24 hour urine and paraproteinemia workup --start on Lasix 20 milligram p.o. daily, may need higher dose considering advanced CKD, aim for net negative. Will need delicate balance considering volume overload and underlying aortic stenosis and mitral regurgitation. --check iron study --monitor renal function daily, check phosphate, PTH --if patient continues to have volume issues, worsening renal function with diuretics, will need discussion with Cardiology to see whether the valvular abnormality is critical and need any intervention --if there is high-grade proteinuria, paraproteinemia workup negative, will consider serology Will follow Thank you for allowing me to participate in your patient's care. It was a pleasure to see Lesly (2) Anemia: (3) Acute hyponatremia: (4) Acute diastolic heart failure due to valvular disease: History of Present Illness Reason for Consultation: FARA/ stage 4 CKD, volume overload Attending Physician: Geo Tapia DO History of Present Illness Ada Pham ( Susie) is a 84-year-old female with past medical history significant for hypertension, chronic kidney disease, aortic stenosis and mitral regurgitation admitted to the hospital with congestive heart failure. Nephrology consult was requested to manage FARA versus advanced CKD and volume overload. Electronic medical records including labs and imaging are reviewed in detail during patient's visit. Lesly presented to the hospital with progressive shortness of breath and heaviness in chest over 2 days. On admission she was found to be volume overloaded and chest x-ray showed pulmonary vascular congestion. EKG showed ST depression, troponins are otherwise unremarkable. Echo showed moderate degree of aortic stenosis and mitral regurgitation. EF well preserved. She was given IV Lasix with improvement in her symptoms. She reports getting short of breath with minimal exertion over last few months. Has not been on any diuretics or oxygen at home. On admission creatinine was 2.3 and remained stable this morning. Electrolyte acceptable. Urinalysis showed low grade proteinuria, no hematuria pyuria. Renal ultrasound showed relatively normal size kidney, no hydronephrosis, had small simple cyst in right kidney. Creatinine was 2.0 in April 2019. Nonsmoker, does not drink alcohol. 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 Has 6 grown up children. No known family history of chronic kidney disease or end-stage renal disease. Has been taking Advil very infrequently for headache. No history of diabetes or coronary artery disease. Allergies Allergy/AdvReac Type Severity Reaction Status Date / Time No Known Drug Allergies Allergy Verified 02/29/20 11:02 Home Medications Home Medications Medication Instructions Recorded Confirmed Type amlodipine 10 mg tablet 10 mg PO HS tab 02/10/20 02/29/20 History terazosin 2 mg capsule 4 mg PO HS cap 02/10/20 02/29/20 History ascorbic acid (vitamin C) [Vitamin 0 mg PO QAM 02/29/20 02/29/20 History C] bisoprolol-hydrochlorothiazide 1 tab PO QAM 02/29/20 02/29/20 History cholecalciferol (vitamin D3) 0 mcg PO QAM 02/29/20 02/29/20 History [Vitamin D3] ibuprofen [Advil] 200 mg PO Q6H PRN 02/29/20 02/29/20 History levothyroxine [Levo-T] 112 mcg PO DAILY@1700 02/29/20 02/29/20 History lorazepam 0.5 mg PO TID PRN 02/29/20 02/29/20 History losartan 100 mg PO HS 02/29/20 02/29/20 History nmrtbibbivuu-jagz-ivram acid 1 tab PO QAM 02/29/20 02/29/20 History [Centrum] omega 8-ihs-xap-fish oil [Fish Oil] 1 cap PO QAM 02/29/20 02/29/20 History Patient History Medical History Aortic stenosis Chronic kidney disease, stage III (moderate) Hypertension LVH (left ventricular hypertrophy) Mitral regurgitation Social History Preferred Language: Tanz[place] Beliefs That Will Affect Care: None Current Living Situation: Alone Other Information That Helps Us Care for You: No Feels Safe at Home: Yes Safety Concerns: Feels Safe At This Time Smoking Status: Never smoker Hx Alcohol Use: No Hx Substance Use: No Review of Systems Review of Systems: All systems reviewed & are unremarkable except as noted in HPI & below Physical Exam Constitutional: WD/WN, vitals as above well developed and well nourished; no acute distress Eyes: PERRL, conjunctivae normal, anicteric sclerae ENMT: external ear and nose normal, oropharynx normal Ears: no hearing impairment Neck: trachea midline Respiratory: no respiratory distress and no cough Auscultation: + crackles Cardiovascular: RRR, no murmur, no edema Heart Sounds: + murmur Gastrointestinal (Abdomen): normal bowel sounds, soft, nontender, no hepatosplenomegaly Percussion/Palpation: abdomen nontender, no guarding and abdomen not rigid Musculoskeletal: Extremities: extremities normal to inspection Gait: normal gait Skin: no rashes, warm and dry Neurologic: moves all extremities and awake Psychiatric: A+Ox3, euthymic affect Results & Data Vital Signs (Past 12 Hours) Vital Signs Temp Pulse Pulse Resp BP Pulse Ox 03/01/20 07:30 37.1 C 88 18 173/71 H 96 03/01/20 05:15 168/72 H 03/01/20 04:05 36.9 C 82 19 181/70 H 90 03/01/20 02:51 61 02/29/20 23:02 36.6 C 62 20 172/62 H 93 PG Care Time/CCT Total # of Minutes Spent Total Time Spent with Patient: Total time spent is greater than 50% in coordination of care (as documented) at patient's floor/unit and/or counseling patient: Coding Level of Care Code 72226 Inpt Consult Level 5 Diagnoses Acute kidney injury superimposed on CKD N17.9; N18.9 Anemia D64.9 Anemia type: unspecified type Acute hyponatremia E87.1 Acute diastolic heart failure due to valvular disease I50.31; I38 (1) Anemia Anemia type: unspecified type Qualified Code(s): D64.9 - Anemia, unspecified
--- NOTE | 2020-03-01 12:38 | Hospitalist Progress Note ---
Date of Service March 01, 2020 Assessment & Plan (1) Shortness of breath on exertion: Mrs. Pham is an 84 yo woman with known aortic stenosis and HFpEF who was admitted for evaluation of exertional SOB and chest heaviness. - initially ACS was on the differential as ST segment depression in lateral leads was worsened from prior study, however trops x 2 negative. Echo without wall motion abnormalities. - suspected etiology is exacerbation of CHF in the setting of worsening aortic stenosis. Echo showing slightly worsened (although still moderate) aortic stenosis. - management as below (2) Acute diastolic heart failure due to valvular disease: - likely etiology of SOB and chest heaviness on exertion - continue Lasix, IV, 20mg daily - continue amlodipine 10mg at bedtime - continue Losartan 100 mg daily - continue home dose terazosin - start coreg 12.5mg bid - stop Bisoprolol-HCT 10-6.25 mg daily. - fluid restrict, low sodium diet - monitor daily I&O's, body weights. (3) Aortic stenosis: - mild worsening demonstrated on echo when compared to previous study, although still classified as "moderate" (4) LVH (left ventricular hypertrophy): - demonstrated on Echo (5) Exertional chest pain: - as above (6) Mitral regurgitation: - demonstrated on echo (7) Acute kidney injury superimposed on CKD: - Cr 2.36 on admission, down to 2.11 - nephrology following, appreciate recs Dispo: med/surg Diet: Heart healthy, Na restrict 2g, fluid restrict 1200 ml DVT ppx: Heparin 5,000 units IV q12 h Code: Full Admission and Anticipated Discharge Date Admission Date: February 29, 2020 Supervising Physician Co-Signing Physician Notes I personally examined the patient and verified all chu points of history and exam, discussed case, and agree with decision making with Dr Mendoza. feeling better, breathing easier. notes she did take in too much salt last week. discusses pretty good understanding that minimizing salt will be of help. vitals noted nad heent nc at mmm breathing unlabored no accessory muscles good effort skin no rashes no pallor or icterus neuro no focal deficits acute on chronic diastolic CHF related to moderate aortic stenosis -improving -diurese -med adjustments -Na restrict / educate on same -improving stable for medical. Subjective Reports feeling nauseous after eating lunch, resolved with passing gas. Not feeling SOB or chest heaviness at present Review of Systems Review of Systems: All systems reviewed & are unremarkable except as noted in HPI & below Physical Exam Constitutional: WD/WN, vitals as above Eyes: + anicteric sclerae ENMT: external ear and nose normal, oropharynx normal Neck: normal visual inspection and trachea midline Respiratory: normal respiratory effort, lungs clear to auscultation Cardiovascular: Rate/Rhythm: regular rate; + abnormal rhythm (additional beats appreciated) Heart Sounds: normal S1, normal S2 and + murmur (systolic ejection ) Extremities: no pedal edema Gastrointestinal (Abdomen): Inspection/Auscultation: + abdomen distended and normal bowel sounds Skin: no rashes, warm and dry Psychiatric: A+Ox3, euthymic affect Results & Data Results & Data ([facility]) Vital Signs (Past 12 Hours) Vital Signs Temp Pulse Pulse Resp BP Pulse Ox 03/01/20 11:29 36.9 C 63 18 171/63 H 93 03/01/20 11:00 88 L 03/01/20 07:30 37.1 C 88 18 173/71 H 96 03/01/20 05:15 168/72 H 03/01/20 04:05 36.9 C 82 19 181/70 H 90 03/01/20 02:51 61 Resident Activity Tracking Resident Involvement: Resident Care Provided Care Provided: Adult Hospital Medicine
[2020-03-01] MEDS: ATORVASTATIN 10 MG TAB PO SCH (12:48)
[2020-03-01] MEDS: carvediloL 12.5 MG TAB PO SCH ×2 (12:48→20:03)
[2020-03-01] MEDS: LEVOTHYROXINE SODIUM 112 MCG TABLET PO SCH (15:55)
--- NOTE | 2020-03-01 16:09 | Billing Data ---
Date of Service March 01, 2020 Coding Level of Care Code 44699 Subseq Hosp Care Lvl 3
[2020-03-01] MEDS: AMLODIPINE BESYLATE 5 MG TAB PO SCH (20:02)
[2020-03-01] MEDS ORDERED: LOSARTAN POTASSIUM 50 MG TAB PO SCH (21:00)
[2020-03-01] MEDS ORDERED: TERAZOSIN HCL 1 MG CAP PO SCH (21:00)
[2020-03-02] MEDS: NITROGLYCERIN 2% OINTMENT 30GM TUBE EXT SCH ×3 (00:35→13:22)
[2020-03-02 06:13] LABS: BUN Creatinine Ratio 15.8 (10-20); Calcium 8.5 mg/dl (8.5-10.1); Creatinine Clr Calc Pharmacy 20.7 ml/min; Est GFR (African American) 28.5; Est GFR (Non-African American) 24.5
[2020-03-02] MEDS: ASPIRIN 81 MG ECTAB PO SCH (09:00)
[2020-03-02] MEDS ORDERED: FUROSEMIDE 20 MG TAB PO SCH (09:00)
[2020-03-02] MEDS: carvediloL 12.5 MG TAB PO SCH (09:00)
[2020-03-02] MEDS: HEPARIN SOD 5,000 UNIT/0.5 ML VIAL SQ SCH (09:01)
[2020-03-02] MEDS: CEROVITE ADV FORMULA TAB PO SCH (09:01)
[2020-03-02] MEDS: ATORVASTATIN 10 MG TAB PO SCH (09:01)
[2020-03-02] MEDS: OMEGA-3 (PURIFIED FISH OIL) 1 GM CAP PO SCH (09:02)
--- NOTE | 2020-03-02 09:22 | Nephrology Progress Note ---
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 Creatinine was 2.0 in April 2019, on admission creatinine was 2.3 yesterday which is staying relatively stable. Unclear etiology for advanced CKD, could be secondary to hypertensive nephropathy, chronic tubular interstitial disease or prior AK I with non recovery. Cannot exclude possibility for underlying glomerular disease, recent UA showed proteinuria, currently 24 hour urine collection for proteinuria is pending. Paraproteinemia workup is pending. Regardless of the cause she prob ably has advanced CKD and creatinine currently 2.3-2.4 may not be that much off from her baseline. Renal function improved to baseline, net negative, volume status improved but BP remained elevated. --change Lasix to 20 milligram p.o. daily, goal net even, avoid too aggressive diuresis --check renal artery doppler --renal panel in am, if remain stable, OK to be discharged Will follow (2) Anemia: (3) Acute hyponatremia: (4) Acute diastolic heart failure due to valvular disease: Admission and Anticipated Discharge Date Admission Date: February 29, 2020 Subjective Lesly was seen and examined this morning. Overall feeling well, denies SOB, CP. Net negative almost 2 L, Renal function better. BP remained elevated. Review of Systems Review of Systems: All systems reviewed & are unremarkable except as noted in HPI & below Physical Exam Constitutional: WD/WN, vitals as above no acute distress Neck: normal visual inspection Respiratory: normal respiratory effort, lungs clear to auscultation Cardiovascular: RRR, no murmur, no edema Heart Sounds: + murmur Skin: no rashes, warm and dry Neurologic: moves all extremities and awake; no focal motor deficits and not confused Psychiatric: A+Ox3, euthymic affect Results & Data ([facility]) Vital Signs (Past 12 Hours) Vital Signs Temp Pulse Resp BP Pulse Ox 03/02/20 07:11 37.1 C 68 18 176/70 H 96 03/01/20 23:16 36.6 C 78 19 181/71 H 94 PG Care Time/CCT Total # of Minutes Spent Total Time Spent with Patient: Total time spent is greater than 50% in coordination of care (as documented) at patient's floor/unit and/or counseling patient: Coding Level of Care Code 92764 Subseq Hosp Care Lvl 3 Diagnoses Acute kidney injury superimposed on CKD N17.9; N18.9 Anemia D64.9 Anemia type: unspecified type Acute hyponatremia E87.1 Acute diastolic heart failure due to valvular disease I50.31; I38 (1) Anemia Anemia type: unspecified type Qualified Code(s): D64.9 - Anemia, unspecified
--- NOTE | 2020-03-02 10:15 | Discharge Summary ---
Date of Service March 02, 2020 Admission HPI Per Admitting Provider Lindsay Pham is an 84 year old female with known HTN, aortic stenosis and mitral regurgitation who presents to the emergency room due to chest heaviness and shortness of breath on exertion. Chest heaviness (denies pain) started yesterday afternoon, associated shortness of breath, any occurred while exerting herself by walking. No chest heaviness or shortness of breath while at rest. Occurred intermittently yesterday without a specific sudden acute worst event. 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 No associated diaphoresis or nausea. No association with eating. No fever, cough, abdominal pain, vomiting, diarrhea, constipation, black or bloody stools. She took an anxiety medication although is unclear of what this was which appeared to help. She does not think this was Lorazepam, possibly Terazosin. She denies being told that she has kidney problems or anemia (outside of previous pregnancies) in the past. In the ER her EKG showed worsening ST depressions in lateral leads from most recent in March 2016. Troponin was negative. Chest x-ray consistent with pulmonary edema due to heart failure +/- acute/chronic kidney injury. She has been asymptomatic at rest since arrival to the ER. She was treated with aspirin 324 mg p.o. and nitroglycerin 2% 0.5 inch paste in the ER. I tried calling PCP office and left message to call back to clarify whether elevated creatinine and anemia are acute or chronic. The patient reports having lab test done in September. Called alternative number directly to Dr Kellogg with no answer. HIM request sent for recent lab work. Admission Exam Per Admitting Provider Constitutional: well developed and well nourished; no acute distress Eyes: PERRL, conjunctivae normal, anicteric sclerae ENMT: external ear and nose normal, oropharynx normal Neck: trachea midline, no thyromegaly Cardiovascular: Rate/Rhythm: regular rate and regular rhythm Heart Sounds: + murmur Vessels: + JVD Extremities: normal capillary refill and + pedal edema (1+ to knees b/l); no calf tenderness Gastrointestinal (Abdomen): normal bowel sounds, soft, nontender, no hepatosplenomegaly Musculoskeletal: no cyanosis or clubbing, extremities motor strength 5/5 Skin: no rashes, warm and dry Neurologic: moves all extremities and awake; no focal motor deficits and not confused Speech / Cognition: normal speech Motor/Sensory: no tremor (Resting) Cranial Nerves: PERRL, EOM intact bilaterally, normal facial strength, tongue midline, able to rotate head bilaterally and able to elevate shoulders bilaterally Psychiatric: A+Ox3, euthymic affect Genitourinary: no CVA tenderness Lymphatic: no cervical or axillary lymphadenopathy Principal Diagnosis CHF exacerbation Discharge Exam Constitutional WD/WN, vitals as above Eyes + anicteric sclerae ENMT external ear and nose normal, oropharynx normal Neck normal visual inspection and trachea midline Respiratory normal respiratory effort, lungs clear to auscultation Cardiovascular Rate/Rhythm: regular rate; + abnormal rhythm (additional beats appreciated) Heart Sounds: normal S1, normal S2 and + murmur (systolic ejection ) Extremities: no pedal edema Gastrointestinal (Abdomen) Inspection/Auscultation: + abdomen distended and normal bowel sounds Skin no rashes, warm and dry Psychiatric A+Ox3, euthymic affect Discharge Data Allergies Allergy/AdvReac Type Severity Reaction Status Date / Time No Known Drug Allergies Allergy Verified 02/29/20 11:02 Consultations 02/29/20 12:08 ED Decision to Admit Stat 02/29/20 13:09 Consult Health Information Management Stat 02/29/20 15:45 Consult Cardiology Routine 02/29/20 22:57 Consult Nephrology Routine Ordered Studies 02/29/20 12:15 US renal/blad retro comp Routine 03/02/20 08:52 US duplex renal artery Routine Hospital Course (1) Shortness of breath on exertion: Mrs. Pham is an 84 yo woman with known aortic stenosis and HFpEF who was admitted for evaluation of exertional SOB and chest heaviness. Initially ACS was on the differential as ST segment depression in lateral leads was worsened from prior study, however trops x 2 negative and TTE was without wall motion abnormalities. The etiology was found to be an exacerbation of her underlying CHF due to increased dietary sodium intake over several days preceding admission. Mrs. Pham reported consuming two casseroles made with canned soup, a bag of potato chips, and eating melon slices sprinkled with salt. She was treated with IV Lasix and clinically improved. Electrolytes were evaluated with lasix use and were normal. Cardiology was consulted and recommend discontinuing her Bisoprolol-HCTZ combination pill in favor of Coreg 12.5mg twice daily. Patient and daughter (who at times prepares meals for patient) were counseled on dietary sodium intake. (2) Aortic stenosis: Patient has known aortic sclerosis. Echo showed mild progression of aortic value disease, comparing reports V-max 2.67m/s (previously 2.09), mean pressure gradient 14.5 mmHg (previously 8.4), YOJANA 1.4 cm (previously 1.4). Overall, still moderate. Cardiology recommended adding Atorvastatin 10mg, daily to delay progression of valvular disease. (3) Acute kidney injury superimposed on CKD: Patient has underlying Stage 3 CKD, baseline Cr around 2.0. Cr elevated to 2.36 on admission, but improved to 1.83 by the time of discharge. Nephrology was consulted on admission who initiated a work-up for her advanced CKD. Renal US showed normal appearance of kidneys. A 24 hour urine collection for proteinuria is pending and paraproteinemia labs were pending at discharge. (4) Hypertension: Patient with elevated, asymptomatic BP readings throughout admission. Nephrology ordered a renal artery doppler, which showed no evidence of stenosis. Patient reported typically good control of BP at home. Recommend medication regimen as follows: Losartan 100mg, Coreg 12.5mg twice daily, Terazosin 4mg, HS, and Amlodipine 10mg, qAM. Recommended home BP monitoring. Outpatient items to do: repeat BP. Adjust medications as appropriate. (5) Anemia: Hemoglobin was low 8-9 in hospital, MCV normal. Iron studies were normal. B12 and Folate were normal. (6) Mitral regurgitation: - demonstrated on echo (7) LVH (left ventricular hypertrophy): - demonstrated on Echo Total Time Total Time Spent Total Time Spent (In Minutes): <30 Discharge Plan Discharge Items Patient Disposition: Home - Self-Care Reason For Visit: FARA,UNSTABLE ANGINA Discharge Diagnosis: CHF exacerbation Condition on Discharge: Good Activity: Resume your previous activity Non-emergency contact: Primary Care Provider Call non-emergency contact if: you have any medication questions Follow-up/Referrals: Blayne Kellogg [Primary Care Provider] - Diet: Low Sodium (2gm) Addtl Attending Provider Instructions: You were hospitalized at [facility] for evaluation of shortness of breath with exertion. Your symptoms were due to a back-up of fluid in your lungs, which was a result of an acute worsening in your congestive heart failure (CHF). We treated you with IV diuretics, or medications to help remove the fluid from your lungs. Your breathing improved with this therapy. As for the cause of your acute worsening of your CHF, the cause was likely from an increased dietary sodium intake. You mentioned that you ate salt on your watermelon/cantaloupe, potato chips, and two casseroles likely made with canned soups (which are notoriously high in sodium). A combination of the above foods contained a high amount of salt. We recommend you resume a low salt diet moving forward. An echocardiogram, or ultrasound of your heart was done and showed a mild worsening of your aortic valve stenosis. However, you are not at the point where you need it replaced. Cardiology was consulted during your hospital stay and made several medication changes. Here is a description of their medication recommendations: - Take Atorvastatin 10mg, daily. This is to help prevent worsening of your aortic valve - Take aspirin, 81mg, daily - Take Coreg, 12.5mg, twice daily. This is to help your heart failure. - Stop your bisoprolol- hydrochlorothiazide combo pill Additionally, your kidney function was worsened from its baseline. Nephrology was consulted during your hospital stay and ordered some testing. An ultrasound of your kidneys was ordered, which showed a normal appearance. Not all of the blood work was back by the time of your discharge, but any abnormal results will be communicated to you. Your kidney function improved by the time of your discharge. Your blood pressure was elevated throughout your hospital stay. You reported it being normal while at home. We recommend you follow up closely with you primary care provider (in 2-3 days) to reassess your blood pressure. We also recommend you purchase a blood pressure cuff and monitor your pressure at home. Please follow up with your primary care provider within 2-3 days of discharge. Pending Studies at Discharge: Yes Stand-Alone Forms: [facility] [place] CHF Dc Instructions, [facility], Smoking Cessation Medications and DC Order Prescriptions: New carvedilol 12.5 mg Tablet 12.5 mg PO BID 30 Days Qty: 60 RF: 0 atorvastatin 10 mg Tablet 10 mg PO QAM 30 Days Qty: 30 RF: 0 aspirin 81 mg Tablet,Delayed Release (Dr/Ec) 81 mg PO QAM 30 Days Qty: 30 RF: 0 Continued amlodipine 10 mg tablet 10 mg PO HS RF: 0 terazosin 2 mg capsule 4 mg PO HS RF: 0 ascorbic acid (vitamin C) [Vitamin C] 1,000 mg Tablet 0 mg PO QAM RF: 0 ibuprofen [Advil] 200 mg Tablet 200 mg PO Q6H PRN (Reason: Pain) RF: 0 cholecalciferol (vitamin D3) [Vitamin D3] 25 mcg (1,000 unit) Tablet 0 mcg PO QAM RF: 0 Centrum 18-400 mg-mcg Tablet 1 tab PO QAM RF: 0 omega 9-[id number]-wyu-fish oil [Fish Oil] 1,000 mg (120 mg-180 mg) Capsule 1 cap PO QAM RF: 0 lorazepam 0.5 mg tablet 0.5 mg PO TID PRN (Reason: anxiety) RF: 0 losartan 100 mg tablet 100 mg PO HS RF: 0 levothyroxine [Levo-T] 112 mcg tablet 112 mcg PO DAILY@1700 RF: 0 Discontinued bisoprolol-hydrochlorothiazide 10-6.25 mg tablet 1 tab PO QAM RF: 0 Discharge Orders: Discharge Order (Routine); Ordered 03/02/20 Ordered By: Renay Mccullough Admission Data Admit Date/Time: 02/29/20 12:40 Attending Provider: Geo Tapia Admit Provider: Steven Ridley Primary Care Provider: Blayne Kellogg Other Providers: Steven Ridley ; Ayush Gonzalez ; Abigail Gerber Other Interventions: Discharge Summary Assessment (RN) Last Done: 03/02/20 16:44 Supervising Physician Co-Signing Physician Notes I personally examined the patient and verified all chu points of history and exam, discussed case, and agree with decision making with Dr Mccullough. feels up to going home, would like to go home. vitals noted nad heent nc at mmm breathing unlabored no accessory muscles good effort skin no rashes no pallor or icterus neuro no focal deficits acute on chronic diastolic CHF related to moderate aortic stenosis -improving -diuresed -med adjustments made -Na restrict / educated on same - she's expressing better understanding -improving and stable for home uncontrolled HTN -stable for home - close outpt f/u - in d/w dr mccullough pt and dtr both note there's likely significant white coat effect - can monitor at home and will ask for close f/u to adjust meds if needed, but largely expect BP to improve on discharge if some of it is stress related anemia, CKD, elevated protein - SPEP/protein studies and 24hr urine pending - close outpt f/u stable for home as above Resident Activity Tracking Resident Involvement: Resident Care Provided Care Provided: Adult Hospital Medicine
--- NOTE | 2020-03-02 16:20 | Ultrasound Report ---
DOPPLER ULTRASOUND OF THE RENAL ARTERIES CLINICAL HISTORY: . COMPARISON STUDY: TECHNIQUE: Doppler sonography of the renal arteries was performed to assess renal artery stenosis. Im ages are reviewed in the transverse and longitudinal planes. FINDINGS: Renal arterial waveforms are unremarkable. Velocity characteristics are within normal limits. Impedance characteristics are unremarkable. IMPRESSION: There is no sonographic evidence of renal artery stenosis. ACT 112: Negative or not required by law. The above report was generated using voice recognition software. It may contain grammatical, syntax or spelling errors. Electronically signed by: Miguel Cabrera M.D. 03/02/2020 4:19 PM
[2020-03-02] MEDS: LEVOTHYROXINE SODIUM 112 MCG TABLET PO SCH (16:41)
--- NOTE | 2020-03-02 17:10 | Billing Data ---
Date of Service March 02, 2020 Coding Level of Care Code D/C Day Management <30 mins
[2020-03-06 20:08] LABS: Albumin 3.7 g/dL (3.8-4.8); Alpha 1 Globulin 0.4 g/dL (0.2-0.3); Alpha 2 Globulin 0.7 g/dL (0.5-0.9); Beta-1-Globulin 0.4 g/dL (0.4-0.6); Beta-2-Globulin 0.2 g/dL (0.2-0.5); Free Kappa 29.9 mg/L (3.3-19.4); Free Kappa/Lambda Ratio 0.42 (0.26-1.65); Free Lambda 70.4 mg/L (5.7-26.3); Gamma Globulin 1.5 g/dL (0.8-1.7); Monoclonal Protein Band 1 0.7 g/dL (NONE DETECTED); Monoclonal Protein Band 2 DNR g/dL (NONE DETECTED); Monoclonal Protein Band 3 DNR g/dL (NONE DETECTED); Total Protein 6.9 g/dL (6.1-8.1)
[2020-03-07 08:24] LABS: Abnormal Protein Band 1 DNR mg/24 h (NONE DETECTED); Abnormal Protein Band 2 DNR mg/24 h (NONE DETECTED); Abnormal Protein Band 3 DNR mg/24 h (NONE DETECTED); Creatinine, 24 hr Urine 1.06 g/24 h (0.50-2.15); Protein, Urine 24 Hour 782 mg/24 h (<150); Ur Protein/Creatinine Rat mg/g 739 mg/g creat (< OR = 114)
== END 2020-03-02 15:50 | disposition home or self-care (01) | DRG 291 ==
LOC: ED 10:07 → 2N 12:40 → SUATTDRO 12:40 → 2N 14:47